=== PATIENT | male | born 1970 | race Two or more races ===

== ENCOUNTER 2017-02-19 01:20 | Emergency (ER) | payer SELFPAY ==
[~2017-02-19] VITALS: Ht 182.9 cm; Wt 72.6 kg
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
--- NOTE | 2017-02-19 02:24 | NUR ---
PT APPEARS TO BE RESTING COMFORTABLY WITH NO S/S OF PAIN OR DISTRESS. PT IS ON THE MONITOR AND CONTINUOUS PULSE OX. WILL CONTINUE TO MONITOR THE PT.
--- NOTE | 2017-02-19 04:05 | NUR ---
PT APPEARS TO BE RESTING COMFORTABLY. WILL CONTINUE TO MONITOR THE PT.
--- NOTE | 2017-02-19 05:19 | NUR ---
Patient discharged to home in stable condition. Written and verbal after care instructions given. Patient verbalizes understanding of instruction. PT AMBULATED OUT WITH A STEADY GAIT. VSS.
[2017-02-19 05:21] VITALS: BP 120/72
== END 2017-02-19 05:19 | disposition home or self-care (01) ==
LOC: ER 01:22
DX: F10.129 Alcohol abuse with intoxication, unspecified (principal); R79.89 Other specified abnormal findings of blood chemistry
CPT/HCPCS: 82962; 99283; A4606; Z7610